=== PATIENT | male | born 1965 | race Native Hawaiian/Other Pacific Islander ===

== ENCOUNTER 2020-05-03 18:22 | Emergency (ER) | payer OTHER ==
[~2020-05-03] VITALS: Ht 180.3 cm; Wt 93.4 kg
[2020-05-04 00:07] VITALS: BP 113/74; TEMP 98.7
== END 2020-05-04 00:05 | disposition home or self-care (01) ==
LOC: ED 18:22
DX: S16.1XXA Strain of muscle, fascia and tendon at neck level, initial encounter (principal); S29.012A Strain of muscle and tendon of back wall of thorax, initial encounter; S40.011A Contusion of right shoulder, initial encounter; V43.62XA Car passenger injured in collision with other type car in traffic accident, initial encounter; Y92.488 Other paved roadways as the place of occurrence of the external cause
CPT/HCPCS: 99283

== ENCOUNTER 2020-07-19 23:15 | Emergency (ER) | payer OTHER ==
[~2020-07-19] VITALS: Ht 172.7 cm; Wt 86.2 kg
[2020-07-20 00:48] LABS: PLATELET COUNT 169 K/uL (142-355)
[2020-07-20 00:51] LABS: POTASSIUM 3.5 mmol/L (3.6-5.2)
[2020-07-20 03:00] VITALS: BP 152/87; TEMP 98.7
== END 2020-07-20 03:00 | disposition home or self-care (01) ==
LOC: ED 23:17
PROVIDERS: Emergency Medicine Emergency Medical Services
DX: F32.89 Other specified depressive episodes (principal)
CPT/HCPCS: 36415; 80053; 80320; 80329; 83735; 85027; 96365; 99285

== ENCOUNTER 2020-11-16 21:20 | Emergency (ER) | payer OTHER ==
[~2020-11-16] VITALS: Ht 172.7 cm; Wt 86.2 kg
[2020-11-16 21:20] VITALS: TEMP 98.5
[2020-11-16] MEDS ORDERED: CELEBREX200 MG PO (21:28)
[2020-11-16] MEDS ORDERED: ASPIRIN/ENTERIC81 MG PO (21:28)
[2020-11-16] MEDS ORDERED: METO25TA2 PO (21:28)
[2020-11-16] MEDS ORDERED: CITALOPRAM20 M1 PO (21:29)
[2020-11-16] MEDS ORDERED: LISI10TA11 PO (21:29)
[2020-11-16] MEDS ORDERED: LIPITOR20 MG PO (21:30)
[2020-11-16] MEDS ORDERED: TAMSULOSIN0.4 MG PO (21:30)
[2020-11-16] MEDS ORDERED: CETIRIZINE HYDR10 MG PO (21:31)
[2020-11-16 21:51] LABS: PLATELET COUNT 182 K/uL (142-355)
[2020-11-16 22:10] LABS: POTASSIUM 3.8 mmol/L (3.6-5.2)
[2020-11-17 01:15] VITALS: BP 122/61
== END 2020-11-17 01:40 | disposition home or self-care (01) ==
LOC: ED 21:20
PROVIDERS: Family Medicine
DX: F10.20 Alcohol dependence, uncomplicated (principal); Y90.6 Blood alcohol level of 120-199 mg/100 ml; F32.89 Other specified depressive episodes; Z03.818 Encounter for observation for suspected exposure to other biological agents ruled out
CPT/HCPCS: 36415; 80053; 80307; 80320; 80329; 81000; 85027; 87635; 93005; 99285; U0003

== ENCOUNTER 2021-02-13 12:14 | Emergency (ER) | payer OTHER ==
[~2021-02-13] VITALS: Ht 172.7 cm; Wt 86.2 kg
[~2021-02-13 12:14] MED LIST: ASPIRIN/ENTERIC81 MG PO; CELEBREX200 MG PO; CETIRIZINE HYDR10 MG PO; CITALOPRAM20 M1 PO; LIPITOR20 MG PO; LISI10TA11 PO; METO25TA2 PO; TAMSULOSIN0.4 MG PO
[2021-02-13 12:20] VITALS: BP 132/82; TEMP 98.1
== END 2021-02-13 14:24 | disposition home or self-care (01) ==
LOC: ED 12:14
DX: U07.1 COVID-19 (principal)
CPT/HCPCS: 87635; 96372; 99283; J1100; J3490; U0003